=== PATIENT | male | born 1975 | race American Indian/Alaskan Native ===

== ENCOUNTER 2021-03-06 12:13 | Emergency (ER) | payer OTHER ==
[2021-03-06 12:51] VITALS: BP 133/93
[2021-03-06] MEDS ORDERED: TETANUS,DIPH,PERTUSS(ACELL) VACCINE 0.5 ML SYRINGE IM ONE (13:11)
--- NOTE | 2021-03-06 13:37 | XRay Report ---
Left foreleg 4 views INDICATION: Left foreleg pain following injury IMPRESSION: The left foreleg is intact. No foreign body identified Signer Name: Suhn Cano MD Signed: 03/06/2021 1:33 PM Workstation Name: [id number]
--- NOTE | 2021-03-06 14:01 | Emergency Department Report ---
ED Lower Extremity HPI - General Chief Complaint: Extremity Injury, Lower Stated Complaint: LT LEG SWELLING Time Seen by Provider: 03/06/21 12:47 Source: patient Mode of arrival: Ambulatory Limitations: No Limitations - History of Present Illness Initial Comments: This is a 45-year-old male nontoxic, well nourished in appearance, no acute sign s of distress presents to the ED with c/o of left distal tib-fib pain 1 week. Patient stated that he hit the corner of [employer]. Patient denies any other injuries or trauma. Patient denies any numbness, tingling, fever, chills, nausea, vomiting, chest pain, shortness of breath, headache, stiff neck. Patient denies any joint swelling or joint redness. Patient denies decreased range of motion or abnormal gait. Patient denies any allergies or significant past medical history. Patient that he is not up-to-date with tetanus. Patient denies following up with a doctor for this condition. MD Complaint: leg injury -: week(s) Injury: Leg: Left Place: street/outdoors Severity: mild Severity scale (0 -10): 8 Improves With: immobilization Worsens With: palpation Context: direct blow Associated Symptoms: ambulatory. denies: snap/pop sensation, swelling, numbness, tingling, unable to bear weight, able to partially bear weight - Related Data Home Medications Medication Instructions Recorded Confirmed Last Taken Propranolol HCl [Inderal Xl] 80 mg PO DAILY 03/24/15 03/24/15 03/24/15 Previous Rx's Medication Instructions Recorded Last Taken Type Hydrocodone/Ibuprofen [Vicoprofen 1 each PO Q6H PRN #16 tablet 03/24/15 Unknown Rx 200-7.5 mg Tab] Sulfamethoxazole/Trimethoprim 1 each PO BID #14 tablet 03/06/21 Unknown Rx [Bactrim DS TAB] Allergies Allergy/AdvReac Type Severity Reaction Status Date / Time No Known Allergies Allergy Unverified 03/24/15 10:56 ED Review of Systems ROS: Stated complaint: LT LEG SWELLING Other details as noted in HPI Comment: All other systems reviewed and negative Constitutional: denies: chills, fever Eyes: denies: eye pain, eye discharge, vision change ENT: denies: ear pain, throat pain Respiratory: denies: cough, shortness of breath, wheezing Cardiovascular: denies: chest pain, palpitations Endocrine: no symptoms reported Gastrointestinal: denies: abdominal pain, nausea, diarrhea Genitourinary: denies: urgency, dysuria Musculoskeletal: denies: back pain, joint swelling, arthralgia Skin: denies: rash, lesions Neurological: denies: headache, weakness, paresthesias Psychiatric: denies: anxiety, depression Hematological/Lymphatic: denies: easy bleeding, easy bruising ED Past Medical Hx - Past Medical History Previous Medical History?: Yes Hx Headaches / Migraines: Yes (migraine) - Surgical History Past Surgical History?: Yes Additional Surgical History: HERNIA REPAIR. 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 - Social History Smoking Status: Never Smoker Substance Use Type: None - Medications Home Medications: Home Medications Medication Instructions Recorded Confirmed Last Taken Type Hydrocodone/Ibuprofen [Vicoprofen 1 each PO Q6H PRN #16 tablet 03/24/15 Unknown Rx 200-7.5 mg Tab] Propranolol HCl [Inderal Xl] 80 mg PO DAILY 03/24/15 03/24/15 03/24/15 History Sulfamethoxazole/Trimethoprim 1 each PO BID #14 tablet 03/06/21 Unknown Rx [Bactrim DS TAB] ED Physical Exam - General Limitations: No Limitations General appearance: alert, in no apparent distress - Head Head exam: Present: atraumatic, normocephalic - Eye Eye exam: Present: normal appearance - Neck Neck exam: Present: normal inspection, full ROM - Respiratory Respiratory exam: Absent: respiratory distress - Cardiovascular Cardiovascular Exam: Present: regular rate - Extremities Exam Extremities exam: Present: normal inspection, full ROM, tenderness, normal capillary refill. Absent: joint swelling, calf tenderness - Expanded Lower Extremity Exam Left Hip exam: Present: normal inspection, full ROM. Absent: tenderness, swelling Upper Leg exam: Present: normal inspection, full ROM. Absent: tenderness, swelling Knee exam: Present: normal inspection, full ROM. Absent: tenderness, swelling Lower Leg exam: Present: full ROM, tenderness, abrasion, erythema. Absent: swelling, laceration, ecchymosis, deformity, crepidus, dislocation, palpable cord, Sergio's sign Ankle exam: Present: normal inspection, full ROM. Absent: tenderness, swelling Foot/Toe exam: Present: normal inspection, full ROM. Absent: tenderness, swelling Neuro vascular tendon exam: Present: no vascular compromise Gait: Positive: observed and normal 1 - 2 cm cellulitis with abrasion. no swelling or abscess noted - Back Exam Back exam: Present: normal inspection, full ROM - Neurological Exam Neurological exam: Present: alert, oriented X3, normal gait - Psychiatric Psychiatric exam: Present: normal affect, normal mood - Skin Skin exam: Present: warm, dry, intact, normal color. Absent: rash ED Course Vital Signs 03/06/21 12:36 Temperature 98.4 F Pulse Rate 76 Respiratory 18 Rate Blood Pressure 133/93 O2 Sat by Pulse 99 Oximetry - Reevaluation(s) Reevaluation #1: 03/06/21 13:59 Patient is speaking in full sentences with no signs of distress noted. ED Lower Extremity MDM - Radiology Data [facility] [address] [place] [address] XRay Report Signed Patient: YENNY SOTELO MR#: [id number] : 1975 Acct:[id number] Age/Sex: 45 / M ADM Date: 03/06/21 Loc: ED Attending Dr: Ordering Physician: SOLIS TRAVIS NP Date of Service: 03/06/21 Procedure(s): XR tibia fibula 2V LT Accession Number(s): [id number] cc: SOLIS TRAVIS NP Fluoro Time In Minutes: Left foreleg 4 views INDICATION: Left foreleg pain following injury IMPRESSION: The left foreleg is intact. No foreign body identified Signer Name: Shun Cano MD Signed: 03/06/2021 1:33 PM Workstation Name: [id number] Transcribed By: BC Dictated By: Shun Cano MD Electronically Authenticated By: Shun Cano MD Signed Date/Time: 03/06/211332 DD/ 31 TD/TT: - Medical Decision Making This is a 45-year-old male that presents with cellulitis with abrasion. Patient is stable and was examined by me. There is no induration, fluctuance. No signs of abscess formation. Patient is notified of the x-ray results with no questions noted by the patient. The area has been outlined with a permanent marker and patient was instructed to observe symptoms of increased redness or swelling and to return to the ER if this does occur. I will discharge patient with Bactrim. Patient did receive a tetanus booster in the ER. Patient was referred to Follow-up with a primary care doctor in 3-5 days or if symptoms worsen and continue return to emergency room as soon as possible. At time of discharge, the patient does not seem toxic or ill in appearance. No acute signs of distress noted. Patient agrees to discharge treatment plan of care. No further questions noted by the patient. Critical care attestation.: If time is entered above; I have spent that time in minutes in the direct care of this critically ill patient, excluding procedure time. ED Disposition Clinical Impression: Abrasion, left lower leg, initial encounter, Left leg cellulitis Contusion of left leg Qualifiers: Encounter type: initial encounter Qualified Code(s): S80.12XA - Contusion of left lower leg, initial encounter Disposition: TO HOME OR SELFCARE Is pt being admited?: No Does the pt Need Aspirin: No Condition: Stable Instructions: Cellulitis, Adult Additional Instructions: Follow-up with a primary care and orthopedic doctor in 3-5 days or if symptoms worsen and continue return to emergency room as soon as possible. Prescriptions: Sulfamethoxazole/Trimethoprim [Bactrim DS TAB] 1 each PO BID #14 tablet Referrals: URVASHI FLEMING MD [Primary Care Provider] - 3-5 Days MARILYN TAYLOR MD [Staff Physician] - 3-5 Days HUGO MENDOZA MD [Staff Physician] - 3-5 Days Time of Disposition: 14:01
== END 2021-03-06 14:30 | disposition home or self-care (01) ==
LOC: ED 12:13
DX: S80.12XA Contusion of left lower leg, initial encounter (principal); G43.909 Migraine, unspecified, not intractable, without status migrainosus; Z98.890 Other specified postprocedural states; Z79.899 Other long term (current) drug therapy; W22.8XXA Striking against or struck by other objects, initial encounter; Y93.89 Activity, other specified; Y92.89 Other specified places as the place of occurrence of the external cause; Y99.8 Other external cause status
CPT/HCPCS: 90471; 90715